=== PATIENT | female | born 1955 | race Caucasian/White ===

== ENCOUNTER 2018-01-28 08:27 | Outpatient (CLI) | payer OTHER ==
[2013-06-14 15:46] VITALS: BP 127/62
== END 2018-01-28 08:30 ==
LOC: POD 08:27
PROVIDERS: ATTEND Podiatrist Public Medicine
DX: M79.672 Pain in left foot (principal); M20.12 Hallux valgus (acquired), left foot
CPT/HCPCS: 99213